=== PATIENT | female | born 1985 | race Caucasian/White ===

== ENCOUNTER 2022-03-20 02:25 | Emergency (ER) | payer OTHER ==
[2022-03-20 02:44] LABS: BASOPHIL 0.8 % (0-2); EOSINOPHIL 1.2 % (0-5); HCT 43.8 % (37.0-47.0); HGB 14.5 g/dl (12.5-16.0); LYMPHOCYTE 26.9 % (15-48); MCH 31.5 pg (25.0-31.0); MCHC 33.1 g/dL (32.0-36.0); MONOCYTE 7.9 % (0-12); MPV 12.8 fL (6.0-9.5); NEUTROPHIL 62.9 % (41-80); NRBC 0; PLT 139 K/uL (150-400); RBC 4.61 M/uL (4.20-5.40); RDW 12.9 % (11.5-14.0); WBC 7.3 K/uL (4.0-10.5)
[2022-03-20 03:05] LABS: ALBUMIN 3.8 g/dL (3.4-5.0); BILIRUBIN - TOTAL 0.6 mg/dL (0.2-1.0); BUN/CREAT RATIO (CALC) 12.5 RATIO; CREATININE 1.04 mg/dL (0.51-0.95); POTASSIUM 3.5 mmol/L (3.5-5.1); TOTAL PROTEIN 7.8 g/dL (6.4-8.2)
== END 2022-03-20 05:26 | disposition home or self-care (01) ==
LOC: FER 02:25
PROVIDERS: Emergency Medicine
DX: R07.9 Chest pain, unspecified (principal); I10 Essential (primary) hypertension; E03.9 Hypothyroidism, unspecified; Z79.899 Other long term (current) drug therapy; Z79.890 Hormone replacement therapy
CPT/HCPCS: 36415; 71045; 80053; 84484; 85025; 93005; J0780; J1200; J1885